=== PATIENT | male | born 1975 | race American Indian/Alaskan Native ===

== ENCOUNTER 2017-04-04 11:15 | Emergency (ER) | payer MEDICAID ==
[2017-04-04 11:16] VITALS: BMI 27.4
[2017-04-04 11:33] VITALS: BP 155/84; PULSE 79; RESP 18; TEMP 98.1; O2SAT 98
--- NOTE | 2017-04-04 11:58 | ED PDOC ---
HPI: Skin/Bite Injury Time Seen by Provider: 04/04/17 11:46 Chief Complaint (Nursing): Abnormal Skin Integrity Chief Complaint (Provider): Abnormal Skin Integrity History Per: Patient History/Exam Limitations: no limitations Onset/Duration Of Symptoms: Days (x3 days) Current Symptoms Are (Timing): Still Present Additional Complaint(s): 41 y/o male presents to the ED complaining of itching on the scalp associated with swelling on right side of the scalp x 3 days. Denies fever or any further medical complaints. Past Medical History Reviewed: Historical Data, Nursing Documentation, Vital Signs Vital Signs: Last Vital Signs Temp 98.1 F 04/04/17 11:31 Pulse 79 04/04/17 11:31 Resp 18 04/04/17 11:31 BP 155/84 H 04/04/17 11:31 Pulse Ox 98 04/04/17 12:04 - Medical History PMH: Asthma (years ago) - Family History Family History: States: Unknown Family Hx - Social History Current smoker - smoking cessation education provided: No (former smoker) Alcohol: None Drugs: Denies - Home Medications Home Medications: Ambulatory Orders Medication Instructions Recorded Bacitracin/Neomycin/Polymyxin 30 applic EXT BID #1 tube 04/04/17 [Neosporin Antibiotic Oint] Sulfamethoxazole/Trimethoprim 1 tab PO BID #20 tab 04/04/17 [Bactrim DS 800 mg-160 mg] - Allergies Allergies/Adverse Reactions: Allergies Allergy/AdvReac Type Severity Reaction Status Date / Time No Known Allergies Allergy Verified 04/04/17 11:47 Review of Systems ROS Statement: Except As Marked, All Systems Reviewed And Found Negative (As per HPI, otherwise negative) Constitutional: Negative for: Fever Skin: Positive for: Other (itching on the scalp) Physical Exam - Reviewed Nursing Documentation Reviewed: Yes Vital Signs Reviewed: Yes - Physical Exam Skin: Positive for: Normal Color, Warm, Dry (no drainage), Rash (small scrapred/ crusted area on occipital area of the scalp) Eye Exam: Positive for: EOMI, Normal appearance, PERRL Cardiovascular/Chest: Positive for: Regular Rate, Rhythm. Negative for: Murmur Respiratory: Positive for: Normal Breath Sounds. Negative for: Accessory Muscle Use, Respiratory Distress Neurologic/Psych: Positive for: Alert, Oriented (x3) - ECG O2 Sat by Pulse Oximetry: 98 (RA) Pulse Ox Interpretation: Normal Medical Decision Making Medical Decision Making: Time: Initial Impression: Plan: Scribe Attestation: Documented by Alex White acting as a scribe for Ada Garay MD. Scribe Attestation: All medical record entries made by the Scribe were at my direction and personally dictated by me. I have reviewed the chart and agree that the record accurately reflects my personal performance of the history, physical exam, medical decision making, and the department course for this patient. I have also personally directed, reviewed, and agree with the discharge instructions and disposition. Disposition - Clinical Impression Clinical Impression: Folliculitis, Lymphadenopathy - Patient ED Disposition Is Patient to be Admitted: No - Disposition Referrals: [facility] [Outside] Disposition: Routine/Home Disposition Time: 12:05 Condition: FAIR Prescriptions: Bacitracin/Neomycin/Polymyxin [Neosporin Antibiotic Oint] 30 applic EXT BID #1 tube Sulfamethoxazole/Trimethoprim [Bactrim DS 800 mg-160 mg] 1 tab PO BID #20 tab Instructions: Lymphadenopathy (ED), Folliculitis (ED) Forms: [employer] (Armenian)
== END 2017-04-04 12:15 | disposition home or self-care (01) ==
LOC: H.ER 11:15
DX: L73.9 Follicular disorder, unspecified (principal); R59.9 Enlarged lymph nodes, unspecified; J45.909 Unspecified asthma, uncomplicated

== ENCOUNTER 2018-01-01 11:08 | Emergency (ER) | payer MEDICAID ==
[2018-01-01 11:18] VITALS: BMI 23.8
[2018-01-01 12:16] LABS: BASO % 0.4 % (0.0-2.0); EOS # 0.1 K/uL (0.0-0.7); EOS % 1.1 % (0.0-4.0); HEMOGLOBIN 15.2 g/dL (12.0-18.0); LYMPH # 2.4 K/uL (1.0-4.3); MEAN CELL VOLUME 91.7 fl (80.0-94.0); MEAN CORPUSCULAR HEMOGLOBIN 30.8 pg (27.0-31.0); MEAN CORPUSCULAR HGB CONC 33.6 g/dL (33.0-37.0); MEAN PLATELET VOLUME 6.7 fl (7.2-11.7); MONO # 0.6 K/uL (0.0-0.8); MONO % 8.4 % (0.0-10.0); NEUT # 4.2 K/uL (1.8-7.0); NEUT % 57.1 % (50.0-75.0); RBC 4.93 Mil/uL (4.40-5.90); WHITE BLOOD COUNT 7.3 K/uL (4.8-10.8)
[2018-01-01 12:25] LABS: ALB/GLOB RATIO 1.5 (1.0-2.1); ALBUMIN 4.4 g/dL (3.5-5.0); ALT/SGPT 47 U/L (21-72); AST/SGOT 34 U/L (17-59); BLOOD UREA NITROGEN 16 mg/dl (9-20); CALCIUM 9.3 mg/dL (8.4-10.2); GFR NON-AFRICAN AMERICAN > 60
--- NOTE | 2018-01-01 13:03 | ED PDOC ---
HPI: Chest Pain Time Seen by Provider: 01/01/18 11:31 Chief Complaint (Nursing): Chest Pain Chief Complaint (Provider): Chest Pain History Per: Patient History/Exam Limitations: no limitations Onset/Duration Of Symptoms: Other (x1 week) Current Symptoms Are (Timing): Still Present Additional Complaint(s): 42 year old male presents to the ED complaining of right sided chest pain for a week. Patient reports pain comes and goes and feels like a muscle ache. 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 Denies trauma, injury, SOB, difficult breathing, fever, and back pain. Otherwise: (-) radiation, (-) diaphoresis, (-) dyspnea, (-) pleuritic component, (-) ripping or tearing quality, (-) positional component, (-) exertional component, (-) dizziness, (-) syncope, (-) nausea, (-) vomiting, (-) calf swelling/pain, (-) neuro deficits, ( -) recent travel. PMD: none Past Medical History Reviewed: Historical Data, Nursing Documentation, Vital Signs Vital Signs: Last Vital Signs Temp 98.2 F 01/01/18 13:58 Pulse 79 01/01/18 13:58 Resp 16 01/01/18 13:58 BP 134/76 01/01/18 13:58 Pulse Ox 100 01/01/18 13:58 - Medical History PMH: Asthma (years ago) - Surgical History Surgical History: No Surg Hx - Family History Family History: States: Unknown Family Hx - Home Medications Home Medications: Ambulatory Orders Medication Instructions Recorded Bacitracin/Neomycin/Polymyxin 30 applic EXT BID #1 tube 04/04/17 [Neosporin Antibiotic Oint] Sulfamethoxazole/Trimethoprim 1 tab PO BID #20 tab 04/04/17 [Bactrim DS 800 mg-160 mg] - Allergies Allergies/Adverse Reactions: Allergies Allergy/AdvReac Type Severity Reaction Status Date / Time No Known Allergies Allergy Verified 01/01/18 11:38 ELLIS Risk Score for UA/NSTEMI - ELLIS Risk Score Age > 64: NO 3 or more CAD Risk Factors: NO Known CAD (Stenosis greater than 50%): NO Aspirin use in past 7 days: NO Severe Angina: NO EKG ST changes greater than 0.5mm: NO Positive Cardiac Marker: NO ELLIS Score: 0 Risk %: 5% Review of Systems ROS Statement: Except As Marked, All Systems Reviewed And Found Negative Constitutional: Negative for: Fever Cardiovascular: Positive for: Chest Pain (right sided) Respiratory: Negative for: Shortness of Breath Musculoskeletal: Negative for: Back Pain Physical Exam - Reviewed Nursing Documentation Reviewed: Yes Vital Signs Reviewed: Yes - Physical Exam Comments: GENERAL APPEARANCE: Patient is awake, alert, oriented x 3, in no acute distress. SKIN: Warm, dry; (-) cyanosis. EYES: (-) conjunctival pallor. ENMT: Mucous membranes moist. NECK: (-) tenderness, (-) stiffness, (-) lymphadenopathy, (-) JVD. CHEST AND RESPIRATORY: (-) rash, (-) chest wall tenderness. Lungs: (-) rales , (-) rhonchi, (-) wheezes, (-) rub; breath sounds equal bilaterally. HEART AND CARDIOVASCULAR: (-) irregularity; (-) murmur, (-) gallop, (-) rub. ABDOMEN AND GI: Soft; (-) distention, (-) tenderness, (-) palpable pulsatile mass. EXTREMITIES: (-) deformity; (-) edema, (-) calf tenderness. (+) distal pulses. NEURO AND PSYCH: Mental status as above. Cranial nerves grossly intact; strength symmetric. - Laboratory Results Result Diagrams: 01/01/18 12:11 01/01/18 12:11 - ECG ECG Rhythm: Positive for: Sinus Rhythm (normal) O2 Sat by Pulse Oximetry: 98 (RA) Pulse Ox Interpretation: Normal Medical Decision Making Medical Decision Making: Initial Impression: Chest Pain Initial Plan: CMP Troponin CBC Chest X-ray EKG: NSR at 79 bpm, (-) acute ST changes, as read by PA. CXR : NAD, as read by PA Labs reviewed. Results are within normal limits. Troponin negative. Diagnostic results d/w the patient. Advised that he needs further outpatient follow up and re-evaluation. Patient remains awake, alert, oriented x 3 and is laying in bed comfortably. Reports no chest pain, SOB or palpitations at this time. 13:10 Advised to follow up with referral physician in 1-2 days without fail. Return to the emergency room at any time for any new or worsening symptoms. Patient states he fully agrees with and understands discharge instructions. States that he agrees with the plan and disposition. Verbalized and repeated discharge instructions and plan. I have given the patient opportunity to ask any additional questions. Scribe Attestation: Documented by Nino Silva acting as a scribe for Delia ANNE. Provider Scribe Attestation: All medical record entries made by the Scribe were at my direction and personally dictated by me. I have reviewed the chart and agree that the record accurately reflects my personal performance of the history, physical exam, medical decision making, and the department course for this patient. I have also personally directed, reviewed, and agree with the discharge instructions and disposition. Disposition - Clinical Impression Clinical Impression: Chest wall pain - Patient ED Disposition Is Patient to be Admitted: No Counseled Patient/Family Regarding: Studies Performed, Diagnosis, Need For Followup - Disposition Referrals: Tito Thorpe MD [Staff Provider] - Disposition: Routine/Home Disposition Time: 13:30 Condition: STABLE Additional Instructions: Thank you for letting us take care of you today. You were treated for chest pain. The emergency medical care you received today was directed at your acute symptoms. Return to the Emergency Department if your symptoms worsen, do not improve, or if you have any other problems. Please contact your doctor in 2 days for re-evaluation and follow up. Bring any paperwork you were given at discharge with you along with any medications you are taking to your follow up visit. Our treatment cannot replace ongoing medical care by a primary care provider (PCP) outside of the emergency department. Thank you for allowing the [facility] team to be part of your care today. Instructions: Costochondritis (DC) Forms: [employer] (Azerbaijani) - PA / MARBLE COPER / Resident Statement MD/DO has reviewed & agrees with the documentation as recorded.
[2018-01-01 13:59] VITALS: BP 134/76; PULSE 79; RESP 16; TEMP 98.2
--- NOTE | 2018-01-01 16:01 | RAD ---
Date of service: 01/01/2018 HISTORY: pain COMPARISON: Comparison chest dated 03/20/2015 TECHNIQUE: Chest PA and lateral FINDINGS: LUNGS: No active pulmonary disease. PLEURA: No significant pleural effusion identified. No pneumothorax apparent. CARDIOVASCULAR: Normal. OSSEOUS STRUCTURES: No significant abnormalities. VISUALIZED UPPER ABDOMEN: Normal. OTHER FINDINGS: None. IMPRESSION: No active disease.
[2018-01-01 16:27] VITALS: O2SAT 98
== END 2018-01-01 13:59 | disposition home or self-care (01) ==
LOC: H.ER 11:08
DX: R07.9 Chest pain, unspecified (principal); J45.909 Unspecified asthma, uncomplicated

== ENCOUNTER 2018-02-15 10:38 | Emergency (ER) | payer MEDICAID ==
[2018-02-15 10:46] VITALS: BMI 22.4
[2018-02-15 10:48] VITALS: BP 114/69; PULSE 83; RESP 16; TEMP 98.8; O2SAT 97
--- NOTE | 2018-02-15 11:24 | ED PDOC ---
HPI: CCC, URI, Sore Throat Additional Complaint(s): 42 y/o male smoker no significant PMH who presents to the ED c/o worsening cough x 3 weeks. Cough is now productive of yellow/green sputum. Has associated symptoms of sore throat and headache when coughing. Has been taking OTC cough medicine without relief. Smoked 2 ppd tobacco but stopped over last 3 days. Denies fever, chills, SOB, CP, sinus congestion, ear pain, difficulty swallowing, abdominal pain, N/V, diarrhea, dizziness, rash. Past Medical History Reviewed: Historical Data, Nursing Documentation, Vital Signs Vital Signs: Last Vital Signs Temp 98.8 F 02/15/18 10:47 Pulse 83 02/15/18 10:47 Resp 16 02/15/18 10:47 BP 114/69 02/15/18 10:47 Pulse Ox 97 02/15/18 10:47 - Medical History PMH: Asthma (years ago) - Family History Family History: States: Unknown Family Hx - Home Medications Home Medications: Ambulatory Orders Medication Instructions Recorded Bacitracin/Neomycin/Polymyxin 30 applic EXT BID #1 tube 04/04/17 [Neosporin Antibiotic Oint] Sulfamethoxazole/Trimethoprim 1 tab PO BID #20 tab 04/04/17 [Bactrim DS 800 mg-160 mg] Albuterol HFA [Ventolin HFA 90 2 puff IH Q6H PRN #60 puff 02/15/18 mcg/actuation (8 g)] Azithromycin [Z-Radames] 250 mg PO DAILY #6 tab 02/15/18 Benzonatate [Tessalon Perle] 100 mg PO Q8H PRN #21 capsule 02/15/18 - Allergies Allergies/Adverse Reactions: Allergies Allergy/AdvReac Type Severity Reaction Status Date / Time No Known Allergies Allergy Verified 01/01/18 11:38 Review of Systems ROS Statement: Except As Marked, All Systems Reviewed And Found Negative Constitutional: Negative for: Fever, Chills Eyes: Negative for: Vision Change ENT: Positive for: Nose Congestion. Negative for: Ear Pain, Ear Discharge, Nose Pain, Mouth Pain, Throat Pain Cardiovascular: Negative for: Chest Pain, Palpitations Respiratory: Positive for: Cough, Sputum. Negative for: Shortness of Breath, Pleuritic Pain, Wheezing Musculoskeletal: Negative for: Neck Pain, Shoulder Pain, Back Pain Skin: Negative for: Rash Neurological: Positive for: Headache. Negative for: Weakness, Numbness, Dizziness Physical Exam - Reviewed Nursing Documentation Reviewed: Yes Vital Signs Reviewed: Yes - Physical Exam Appears: Positive for: Well, Non-toxic, No Acute Distress Head Exam: Positive for: ATRAUMATIC, NORMAL INSPECTION, NORMOCEPHALIC Skin: Positive for: Normal Color, Warm, DRY Eye Exam: Positive for: EOMI, Normal appearance, PERRL ENT: Positive for: Normal ENT Inspection, Pharynx Is (normal), TM Is/Are (normal) Neck: Positive for: Normal, Painless ROM Cardiovascular/Chest: Positive for: Regular Rate, Rhythm Respiratory: Positive for: Rhonchi (right side). Negative for: Decreased Breath Sounds, Accessory Muscle Use, Crackles, Stridor, Wheezing, Respiratory Distress, Plerual Rub Pulses-Radial (L): 2+ Pulses-Radial (R): 2+ Gastrointestinal/Abdominal: Positive for: Normal Exam, Soft Extremity: Positive for: Normal ROM Lymphatic: Positive for: Normal Exam Neurologic/Psych: Positive for: Alert, Oriented - ECG O2 Sat by Pulse Oximetry: 97 Medical Decision Making Medical Decision Makin42 y/o male smoker no significant PMH who presents to the ED c/o worsening cough x 3 weeks. Cough is now productive of yellow/green sputum. Has associated symptoms of sore throat and headache when coughing. Has been taking OTC cough medicine without relief. Smoked 2 ppd tobacco but stopped over last 3 days. Denies fever, chills, SOB, CP, sinus congestion, ear pain, difficulty swallowing, abdominal pain, N/V, diarrhea, dizziness, rash. Exam: Rhonchi right posterior lung david; nasal congestion. Otherwise normal cardiac, neuro HEENT, abdominal exams. Initial plan: --CXR CXR: No active disease Will give Zpak due to green sputum and smoking history. Impression: Bronchitis Plan: Take tessalon perles every 8 hours as needed for cough take z-radames as prescribed use inhaler 2 puffs every 4-6 hours as needed for cough STOP SMOKING Followup with primary within 2 days Return to ED if symptoms persist or worsen Disposition - Clinical Impression Clinical Impression: Bronchitis - Patient ED Disposition Is Patient to be Admitted: No - Disposition Referrals: [facility] [Outside] Disposition: Routine/Home Disposition Time: 13:30 Condition: STABLE Additional Instructions: Take tessalon perles every 8 hours as needed for cough take z-radames as prescribed use inhaler 2 puffs every 4-6 hours as needed for cough STOP SMOKING Followup with primary within 2 days Return to ED if symptoms persist or worsen Prescriptions: Albuterol HFA [Ventolin HFA 90 mcg/actuation (8 g)] 2 puff IH Q6H PRN #60 puff PRN Reason: Cough Azithromycin [Z-Radames] 250 mg PO DAILY #6 tab Benzonatate [Tessalon Perle] 100 mg PO Q8H PRN #21 capsule PRN Reason: Cough Instructions: Acute Bronchitis Forms: [employer] [facility] (Moroccan), [facility] ED School/Work Excuse
--- NOTE | 2018-02-15 13:05 | RAD ---
Date of service: 02/15/2018 HISTORY: productive cough r/o pneumonia COMPARISON: 01/01/2018 TECHNIQUE: Chest PA and lateral FINDINGS: LUNGS: No active pulmonary disease. PLEURA: No significant pleural effusion identified. No pneumothorax apparent. CARDIOVASCULAR: No radiographic findings to suggest acute or significant cardiovascular disease. OSSEOUS STRUCTURES: No significant abnormalities. VISUALIZED UPPER ABDOMEN: Normal. OTHER FINDINGS: None. IMPRESSION: No active disease. No significant interval change compared to the prior examination(s).
== END 2018-02-15 13:38 | disposition home or self-care (01) ==
LOC: H.ER 10:38
DX: J40 Bronchitis, not specified as acute or chronic (principal); J45.909 Unspecified asthma, uncomplicated; F17.200 Nicotine dependence, unspecified, uncomplicated; Z79.899 Other long term (current) drug therapy

== ENCOUNTER 2018-02-16 17:05 | Emergency (ER) | payer MEDICAID ==
[2018-02-16 17:05] VITALS: BMI 22.4
[2018-02-16 17:31] VITALS: TEMP 97.5
--- NOTE | 2018-02-16 18:19 | ED PDOC ---
HPI: Nose Bleed History Per: Patient Additional Complaint(s): Pt. states since Wednesday he's had intermittent nosebleeding associated with cough, congestion. Pt. states he is able to stop bleeding by applying pressure to the nose. Further reports he was seen in this ED yesterday for cough and prescribed Z-pack, cough pill, and albuterol pump. Denies SOB, chest pain, hemoptysis, sick contacts, recent travel. <George Giron E - Last Filed: 02/16/18 18:26> <Ada Garay F - Last Filed: 02/18/18 18:27> Time Seen by Provider: 02/16/18 17:40 Chief Complaint (Nursing): ENT Problem Supervising Attending Note - Attestation: I have personally seen and examined this patient.: No I have reviewed all pertinent clinical information, including history, physical exam and plan: Yes <Ada Garay F - Last Filed: 02/18/18 18:27> Past Medical History Reviewed: Historical Data, Nursing Documentation, Vital Signs Vital Signs: Last Vital Signs Temp 97.5 F L 02/16/18 17:27 Pulse 71 02/16/18 17:27 Resp 16 02/16/18 17:27 BP 153/88 H 02/16/18 17:27 Pulse Ox 99 02/16/18 17:27 - Medical History PMH: Asthma (years ago) - Surgical History Surgical History: No Surg Hx - Family History Family History: States: No Known Family Hx <George Giron E - Last Filed: 02/16/18 18:26> Vital Signs: Last Vital Signs Temp 97.5 F L 02/16/18 17:27 Pulse 70 02/16/18 18:26 Resp 15 02/16/18 18:26 BP 146/77 02/16/18 18:26 Pulse Ox 99 02/16/18 18:30 <Ada Garay F - Last Filed: 02/18/18 18:27> - Home Medications Home Medications: Ambulatory Orders Medication Instructions Recorded Bacitracin/Neomycin/Polymyxin 30 applic EXT BID #1 tube 04/04/17 [Neosporin Antibiotic Oint] Sulfamethoxazole/Trimethoprim 1 tab PO BID #20 tab 04/04/17 [Bactrim DS 800 mg-160 mg] Azithromycin [Z-Radames] 250 mg PO DAILY #6 tab 02/15/18 Benzonatate [Tessalon Perle] 100 mg PO Q8H PRN #21 capsule 02/15/18 RX: Albuterol HFA [Ventolin HFA 90 2 puff IH Q6H PRN #60 puff 02/15/18 mcg/actuation (8 g)] Sodium Chloride [Saline Nasal Mist] 2 - 4 spray NS CONT PRN #1 bottle 02/16/18 - Allergies Allergies/Adverse Reactions: Allergies Allergy/AdvReac Type Severity Reaction Status Date / Time No Known Allergies Allergy Verified 02/16/18 17:26 Review of Systems ROS Statement: Except As Marked, All Systems Reviewed And Found Negative ENT: Positive for: Nose Congestion Respiratory: Positive for: Cough <George Giron - Last Filed: 02/16/18 18:26> Physical Exam - Physical Exam Appears: Positive for: Well, Non-toxic, No Acute Distress Skin: Positive for: Normal Color, Warm. Negative for: Rash Eye Exam: Positive for: EOMI, Normal appearance, PERRL ENT: Positive for: Normal ENT Inspection, Other (no septal hematoma b/l; no active bleeding to nose; no dry blood to nose b/l) Neck: Positive for: Normal, Painless ROM Cardiovascular/Chest: Positive for: Regular Rate, Rhythm Respiratory: Positive for: CNT, Normal Breath Sounds Neurologic/Psych: Positive for: Alert, Oriented (x3). Negative for: Aphasia, Facial Droop <George Giron - Last Filed: 02/16/18 18:26> - ECG O2 Sat by Pulse Oximetry: 99 <George Giron - Last Filed: 02/16/18 18:26> Disposition - Patient ED Disposition Is Patient to be Admitted: No - Disposition Disposition: Routine/Home Disposition Time: 18:22 <George Giron - Last Filed: 02/16/18 18:26> <Ada Garay - Last Filed: 02/18/18 18:27> - Clinical Impression Clinical Impression: Epistaxis - Disposition Referrals: [facility] [Outside] Condition: STABLE Additional Instructions: RAMIRO JUAREZ, thank you for letting us take care of you today. Your provider was Ada Garay MD and you were treated for NOSEBLEED. The emergency medical care you received today was directed at your acute symptoms. If you were prescribed any medication, please fill it and take as directed. It may take several days for your symptoms to resolve. Return to the Emergency Department if your symptoms worsen, do not improve, or if you have any other problems. Please contact your doctor or call one of the physicians/clinics you have been referred to that are listed on the Patient Visit Information form that is included in your discharge packet. Bring any paperwork you were given at discharge with you along with any medications you are taking to your follow up visit. Our treatment cannot replace ongoing medical care by a primary care provider outside of the emergency department. Thank you for allowing the [facility] team to be part of your care today. If you had an X-Ray or CT scan: A Radiologist will review the ED reading if any change in treatment is needed we will contact you. If you had a blood, urine, or wound culture: It will take several days for the results, if any change in treatment is needed we will contact you. If you had an STI test: It will take 48 hours for the results. Please call after 1 week if you have not heard back. Prescriptions: Sodium Chloride [Saline Nasal Mist] 2 - 4 spray NS CONT PRN #1 bottle PRN Reason: Nasal Congestion Instructions: Nosebleeds (DC) Forms: [employer] (Portuguese) Print Language: GREENLANDIC
[2018-02-16 18:26] VITALS: BP 146/77; PULSE 70; RESP 15
[2018-02-16 18:28] VITALS: O2SAT 99
== END 2018-02-16 18:27 | disposition home or self-care (01) ==
LOC: H.ER 17:05
DX: R04.0 Epistaxis (principal)

== ENCOUNTER 2018-09-04 10:01 | Emergency (ER) | payer MEDICAID ==
[2018-09-04 10:09] VITALS: BMI 25.1
[2018-09-04 10:11] VITALS: BP 153/106; PULSE 81; RESP 20; TEMP 98.8; O2SAT 100
== END 2018-09-04 10:30 | disposition left against medical advice (07) ==
LOC: H.ER 10:01
DX: Z02.89 Encounter for other administrative examinations (principal)